=== PATIENT | female | born 1995 | race Caucasian/White ===

== ENCOUNTER 2024-04-23 17:28 | Inpatient (IN) ==
[2024-04-24] MEDS ORDERED: OXYTOCIN 30 UNITS/NSS 30 UNITS/500 ML BAG IV PRN ×2 (08:44→18:27)
[2024-04-24] MEDS ORDERED: LIDOCAINE 1% LOCAL 20 ML VIAL INFIL PRN (08:44)
[2024-04-24] MEDS: LACTATED RINGER'S 1,000 ML IV PRN (09:05)
[2024-04-24] MEDS: OXYTOCIN 30 UNITS/NSS 30 UNITS/500 ML BAG IV PRN (09:05)
--- NOTE | 2024-04-24 09:35 | Labor Progress Brief Note ---
Date of Service April 24, 2024 Subjective 28yo scheduled for eIOL yesterday but needed to be pushed to today due to high census. no OB c/o on admission, ready to begin. Possible undiagnosed GDM; failed screen and declined diagnostic test. Flu and COVID unvaccinated. Prior deliveries at [facility] and [facility]. Assessment & Plan (1) Encounter for induction of labor: Plan: Pitocin Admission and Anticipated Discharge Date Admission Date: April 24, 2024 Physical Exam Genitourinary: FHT Cat 1 [place] Q5-6 Cvx 2/50/-2/soft/post Results & Data Vital Signs (Past 12 Hours) Vital Signs Temp Pulse Resp BP 04/24/24 09:07 92 H 115/72 04/24/24 07:48 100 H 135/77 04/24/24 07:34 99.0 F 100 H 16 135/77 Coding Level of Care Code None Diagnoses Encounter for induction of labor Z34.90
[2024-04-24 09:47] LABS: Hematocrit (blood only) 33.3 % (37.0-47.0); Hemoglobin 10.9 g/dl (12.0-16.0); Mean Corpuscular Hemoglobin 29.1 pg (25.0-34.0); Mean Corpuscular Hgb Conc 32.7 g/dL (32.0-36.0); Platelet Count 163 K/uL (130-400); RDW Coefficient of Variation 16.9 % (11.5-14.5); RDW Standard Deviation 54.8 fL (36.4-46.3); Red Blood Count 3.74 M/uL (4.20-5.40); White Blood Count 13.37 K/ul (4.8-10.8)
[2024-04-24] MEDS ORDERED: ROPIVACAINE 0.5% PF 5 MG/ML 20 ML VIAL EPI PRN (13:00)
[2024-04-24] MEDS ORDERED: LIDOCAINE 2% MPF LOCAL 5 ML VIAL EPI PRN (13:00)
[2024-04-24] MEDS ORDERED: diphenhydrAMINE 50 MG/ML VIAL IV PRN (13:00)
[2024-04-24] MEDS ORDERED: NALOXONE HCL 0.4 MG/1 ML VIAL/CARP IV PRN (13:00)
[2024-04-24] MEDS ORDERED: NALBUPHINE HCL 5 MG in SYRINGE 0 ML IV PRN (13:00)
[2024-04-24] MEDS ORDERED: NALOXONE HCL 1 MG in SODIUM CHLORIDE 0.9% 1,000 ML IV PRN (13:00)
[2024-04-24] MEDS ORDERED: BUPIVACAINE 0.25% PF 30 ML VIAL EPI PRN (13:00)
[2024-04-24] MEDS ORDERED: fentaNYL citrate PF 100 MCG/2 ML VIAL EPI PRN (13:00)
[2024-04-24] MEDS ORDERED: ePHEDrine sulfate 50 MG/ML AMP IV PRN (13:00)
[2024-04-24] MEDS ORDERED: fentANYL 2 MCG/ML BUPIVacaine 0.125%-NSS 100ML BAG EPI PRN (13:00)
[2024-04-24] MEDS ORDERED: SODIUM CHLORIDE 0.9% PF INJ 10 ML VIAL EPI PRN (13:00)
--- NOTE | 2024-04-24 13:00 | Anesthesiology Consultation ---
Date of Service April 24, 2024 Assessment & Plan Chart Review Chart Review: Acceptable Risk for Labor Epidural History Height/Weight Height: 5 ft 1 in Weight: 85.729 kg Allergies Allergy/AdvReac Type Severity Reaction Status Date / Time No Known Allergies Allergy Verified 04/21/24 09:18 Medications Home Medications Medication Instructions Recorded Confirmed Last Taken PNV [id number] PO 10/19/23 04/21/24 Unknown [ Gummies(zinc chelate)] ferrous sulfate 325 mg (65 mg 325 mg PO DAILY 03/17/24 04/21/24 Unknown iron) tablet (FeroSul) Active Medications Generic Name Dose Route Start Last Admin Trade Name Freq PRN Reason Stop Dose Admin Oxytocin 30 units in 500 mls @ 14 mls/hr 04/24/24 08:44 04/24/24 12:15 Pitocin 30 Units/Nss IV 04/26/24 08:43 0.84 units/hr .Q24H PRN 14 mls/hr Labor Induction/Augmentation Titration Protocol 0.84 UNITS/HR Lactated Ringer's 1,000 mls @ 125 mls/hr 04/24/24 08:44 04/24/24 12:50 Lr IV 04/26/24 08:43 999 mls/hr .Q8H PRN Infusion L&D Protocol Protocol Past Medical History Medical History (Updated 04/24/24 @ 09:35 by Vianey Perdomo MD) Varicella vaccination Past Family History Family History Mother Heart disease Denies family history of Ovarian cancer Breast cancer Colorectal cancer Past Surgical History Surgical History S/P wisdom tooth extraction Social History Smoking Status: Never smoker Do You Dip or Chew Tobacco: No Hx Alcohol Use: No Hx Substance Use: No Physical Exam Vital Signs Last Vital Signs Temp 37.1 C 04/24/24 11:20 Pulse 91 H 04/24/24 12:56 Resp 16 04/24/24 11:20 BP 117/68 04/24/24 12:23 Pulse Ox 98 04/24/24 12:56 Testing Laboratory Results 04/24/24 09:19 Blood Type A Negative 04/24/24 09:19 Antibody Screen NEGATIVE 04/24/24 09:19 04/24/24 08:38 POC Glucose 85
[2024-04-24] MEDS: LIDOCAINE 2%/EPINEPHRINE 1:200,000 20 ML PF ONE (13:13)
[2024-04-24] MEDS: SODIUM CHLORIDE 0.9% PF INJ 10 ML VIAL ONE (13:14)
[2024-04-24] MEDS: BUPIVACAINE 0.25% PF 30 ML VIAL ONE (13:14)
[2024-04-24] MEDS: fentaNYL citrate PF 100 MCG/2 ML VIAL ONE (13:14)
[2024-04-24] MEDS: fentANYL 2 MCG/ML BUPIVacaine 0.125%-NSS 100ML BAG ONE (13:28)
--- NOTE | 2024-04-24 18:20 | Delivery Summary ---
Vaginal Delivery Summary Date of Service April 24, 2024 Vaginal Delivery Summary DIAGNOSES: 1. Marsh intrauterine at 39w5d gestation. 2. Induction of Labor. 3. Group B Streptococcus Neg. PROCEDURE: Spontaneous vaginal delivery without laceration. SURGEON: Vianey Perdomo MD. INVENTORY CONTROLLER: None. QUANTITATIVE BLOOD LOSS: 25 mL. COMPLICATIONS: None. PLACENTA: Spontaneous and intact with a 3-vessel cord. DISPOSITION: Stable to labor and delivery. DESCRIPTION: The patient pushed well and brought the head to in OA position. The infant's head was allowed to deliver with contraction force and no further active pushing, with the perineum protected during this time. There was one loop of nuchal cord. The right shoulder was anterior. The shoulders and body delivered without any difficulty, and the infant was placed on the maternal abdomen. It was vigorous and moving all extremities, and making respiratory efforts. The cord was doubly clamped by the MD and then cut by the FOB. The placenta delivered spontaneously and was noted to be intact and with a 3VC. The cervix, vagina and perineum were examined and were found to be without defect requiring repair. The fundus was firm and lochia minimal immediately after delivery. MNP Vaginal Delivery Charge Vaginal Delivery Codes: 68897 global code for the antepartum, delivery, and post-
[2024-04-24] MEDS ORDERED: HYDROCORTISONE ACETATE 25 MG SUPP PR PRN (18:27)
[2024-04-24] MEDS ORDERED: bisacodyL 10 MG SUPP PR PRN (18:27)
[2024-04-24] MEDS ORDERED: ACETAMINOPHEN 325 MG TAB PO PRN (18:27)
--- NOTE | 2024-04-24 19:04 | Anesthesia Procedure Note ---
Date of Service April 24, 2024 Anesthesia Post Epidural Note Vital Signs Vital Signs: Temp Pulse Resp BP Pulse Ox 36.9 C 88 18 132/59 L 100 04/24/24 18:15 04/24/24 18:36 04/24/24 18:45 04/24/24 18:36 04/24/24 18:01 Notes Mental Status: alert / awake / arousable and participated in evaluation Nausea / Vomiting: adequately controlled Pain: adequately controlled Airway Patency, RR, SpO2: stable & adequate BP & HR: stable & adequate Hydration State: stable & adequate Neuraxial Anesthesia: was administered and sensory block resolved Anesthetic Complications: no major complications apparent and Pt Satisfied with anesthetic care Epidural: Removed without complications and With tip intact
[2024-04-24] MEDS: IBUPROFEN 600 MG TAB PO PRN (19:26)
[2024-04-24] MEDS: BENZOCAINE 20% SPRY 85 APPLN/85 GM CAN EXT PRN (20:46)
[2024-04-24] MEDS: DOCUSATE SODIUM 100 MG CAP PO SCH (21:52)
[2024-04-24] MEDS: DIPHTHER/TETAN/PERTUS Vaccine (Tdap, Adol/Adult) 0.5mL IM ONE (21:52)
[2024-04-24] MEDS: LACTATED RINGER'S 1,000 ML IV SCH (21:54)
[2024-04-24] MEDS: ePHEDrine sulfate 50 MG/ML AMP ONE (21:54)
[2024-04-24] MEDS: fentaNYL citrate PF 100 MCG/2 ML VIAL EPI STA (21:55)
[2024-04-24] MEDS: SODIUM CHLORIDE 0.9% PF INJ 10 ML VIAL EPI STA (21:55)
[2024-04-24] MEDS: BUPIVACAINE 0.25% PF 30 ML VIAL EPI STA (21:55)
[2024-04-24] MEDS: LIDOCAINE 2%/EPINEPHRINE 1:200,000 20 ML PF EPI STA (21:55)
[2024-04-25 06:32] LABS: Hematocrit (blood only) 30.1 % (37.0-47.0); Hemoglobin 10.1 g/dl (12.0-16.0); Mean Corpuscular Hemoglobin 29.3 pg (25.0-34.0); Mean Corpuscular Hgb Conc 33.6 g/dL (32.0-36.0); Mean Corpuscular Volume 87.2 fL (80.0-100.0); Mean Platelet Volume 11.7 fL (9.4-12.4); Platelet Count 161 K/uL (130-400); RDW Coefficient of Variation 17.1 % (11.5-14.5); RDW Standard Deviation 53.7 fL (36.4-46.3); Red Blood Count 3.45 M/uL (4.20-5.40); White Blood Count 16.39 K/ul (4.8-10.8)
--- NOTE | 2024-04-25 07:28 | Obstetrical Progress Note ---
Date of Service April 25, 2024 Subjective Ambulation: ambulating normally Voiding: no voiding problems Passing Gas:: Yes Diet Tolerance:: regular diet Lochia:: Small Feeding Type:: breast feeding Physical Exam Constitutional WD/WN, vitals as above Eyes PERRL, conjunctivae normal, anicteric sclerae Neck normal visual inspection Respiratory normal respiratory effort and able to speak in complete sentences; no respiratory distress and no labored breathing Cardiovascular Rate/Rhythm: regular rate and regular rhythm Extremities: no edema Chest (Breasts) Chest: normal inspection of chest Gastrointestinal (Abdomen) Inspection/Auscultation: abdomen normal to inspection Soft, postgravid Psychiatric A+Ox3, euthymic affect Genitourinary OB Exam Abdomen: + fundal height Fundus: + firm and + relation to umbilicus (fundus just below umbilicus); not tender Results & Data Vital Signs (Past 12 Hours) Vital Signs Temp Pulse Pulse Resp BP BP Pulse Ox 04/25/24 04:25 98.6 F 79 18 120/70 99 04/25/24 00:15 98.8 F 89 18 116/68 96 04/24/24 21:15 99.3 F 97 H 18 134/83 98 04/24/24 20:21 91 H 18 124/61 04/24/24 20:06 86 133/56 L 04/24/24 19:51 96 H 18 125/61 04/24/24 19:36 92 H 123/58 L O2 Del Method 04/25/24 04:25 Room Air 04/25/24 00:15 Room Air 04/24/24 21:15 Room Air 04/24/24 20:21 04/24/24 20:06 04/24/24 19:51 04/24/24 19:36
[2024-04-25] MEDS: PRENATAL VITAMIN 1 TAB PO SCH (08:28)
[2024-04-25 15:45] VITALS: BP 99/55; PULSE 90; RESP 16; TEMP 99; O2SAT 96
[2024-04-25] MEDS ORDERED: bisacodyL 5 MG TABEC PO SCH (20:00)
== END 2024-04-25 18:40 | disposition home or self-care (01) | DRG 807 ==
LOC: 4S1 04-24 07:21 → 4E2 04-24 21:01